=== PATIENT | male | born 1980 | race Caucasian/White ===

== ENCOUNTER 2017-06-08 20:27 | Emergency (ER) | payer OTHER ==
[~2017-06-08] VITALS: Ht 177.8 cm; Wt 100.0 kg
[2017-06-08 20:38] VITALS: BP 129/90; PULSE 82; RESP 16; O2SAT 97
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
[2017-06-08] MEDS ORDERED: CYCL10TA9 PO (22:39)
[2017-06-08] MEDS ORDERED: HYDR-4003 PO (22:39)
[2017-06-08] MEDS ORDERED: IBUP800T28 PO (22:39)
[2017-06-08 22:55] VITALS: BP 124/80; PULSE 67; RESP 16; O2SAT 97
== END 2017-06-08 22:56 | disposition home or self-care (01) ==
LOC: SED 20:27
DX: S16.1XXA Strain of muscle, fascia and tendon at neck level, initial encounter (principal); V43.52XA Car driver injured in collision with other type car in traffic accident, initial encounter; Y93.89 Activity, other specified; Y92.410 Unspecified street and highway as the place of occurrence of the external cause; Y99.8 Other external cause status; M25.512 Pain in left shoulder; M79.642 Pain in left hand; Z88.0 Allergy status to penicillin